=== PATIENT | male | born 1935 | race Caucasian/White ===

== ENCOUNTER → 2023-10-02 08:45 | Outpatient (REF) | payer MEDICARE, OTHER, SELFPAY ==
[2023-10-02 09:22] LABS: % Basophils 0.5 % (0-2); % Eosinophils 2.8 % (0-6); % Immature Granulocytes 0.4 % (0-0.5); % Lymphocytes 42.3 % (20.5-51.1); % Monocytes 6.2 % (1.7-9.3); % Neutrophils 47.8 % (42.2-75.2); Absolute Eosinophils 0.2 10^3/uL (0-0.7); Absolute Lymphocytes 3.6 10^3/uL (1.2-3.4); Absolute Monocytes 0.5 10^3/uL (0.1-0.6); Absolute Neutrophils 4.1 10^3/uL (1.4-6.5); Hematocrit 44.6 % (39.0-52.0); Hemoglobin 14.7 g/dL (13.0-18.0); Mean Corpuscular Volume 94.1 fL (80.0-94.0); Mean Platelet Volume 10.4 fL (7.4-10.4); Nucleated Red Blood Cells % 0 % (-); Platelet Count 331 10^3/uL (130-400); Red Blood Cell Count 4.74 10^6/uL (4.70-6.10); Red Cell Dist. Width 13.2 % (11.5-14.5); White Blood Cell Count 8.5 10^3/uL (4.8-10.8)
[2023-10-02 09:58] LABS: ALT (SGPT) 27 U/L (0-50); AST (SGOT) 35 U/L (17-59); Albumin 4.2 g/dl (3.5-5.0); Alkaline Phosphatase 61 U/L (38-126); Blood Urea Nitrogen 17 mg/dl (9-20); Calcium 9.8 mg/dl (8.4-10.2); Carbon Dioxide 32 mmol/L (22-30); Chloride 100 mmol/L (98-107); Glucose 114 mg/dl (70-99); HDL Cholesterol 44 mg/dl; LDL Cholesterol, Calculated 81 mg/dl; Potassium 4.6 mmol/L (3.5-5.1); Sodium 140 mmol/L (135-145); Total Cholesterol 153 mg/dl (50-199); Total Protein 6.5 g/dl (6.3-8.2); Triglyceride 140 mg/dl (10-149); Very Low Density Lipoprotein 28 mg/dl (0-30); eGFR > 60.00
[2023-10-02 13:20] LABS: Glycohemoglobin (HgbA1c) 5.9 % (4.0-5.6)
== END ==
LOC: REG 08:45
PROVIDERS: ATTENDING PHYSICIAN Family Medicine
DX: I48.0 Paroxysmal atrial fibrillation (principal); I25.10 Atherosclerotic heart disease of native coronary artery without angina pectoris; E78.2 Mixed hyperlipidemia; R73.01 Impaired fasting glucose
CPT/HCPCS: 36415; 80053; 80061; 83036; 85025

== ENCOUNTER → 2023-12-28 09:32 | Outpatient (REF) | payer MEDICARE, OTHER, SELFPAY ==
[2023-12-28 12:12] LABS: Blood Urea Nitrogen 22 mg/dl (9-20); Calcium 9.7 mg/dl (8.4-10.2); Carbon Dioxide 33 mmol/L (22-30); Chloride 100 mmol/L (98-107); Glucose 88 mg/dl (70-99); Potassium 4.5 mmol/L (3.5-5.1); Sodium 141 mmol/L (135-145); eGFR > 60.00
== END ==
LOC: REG 09:32
PROVIDERS: ATTENDING PHYSICIAN Family Medicine
DX: R60.0 Localized edema (principal)
CPT/HCPCS: 36415; 80048

== ENCOUNTER → 2024-01-23 10:42 | Outpatient (REF) | payer MEDICARE, OTHER, SELFPAY | LOC: RCS 10:42 | PROVIDERS: ATTENDING PHYSICIAN Internal Medicine Cardiovascular Disease; FAMILY PHYSICIAN Family Medicine | DX: R60.9 Edema, unspecified (principal) | CPT/HCPCS: 93306 ==

== ENCOUNTER → 2024-03-18 08:53 | Outpatient (REF) | payer MEDICARE, OTHER, SELFPAY ==
[2024-03-18 09:47] LABS: % Basophils 0.6 % (0-2); % Immature Granulocytes 0.4 % (0-0.5); % Lymphocytes 46.8 % (20.5-51.1); % Monocytes 5.7 % (1.7-9.3); % Neutrophils 44.5 % (42.2-75.2); Absolute Eosinophils 0.1 10^3/uL (0-0.7); Absolute Lymphocytes 3.3 10^3/uL (1.2-3.4); Absolute Monocytes 0.4 10^3/uL (0.1-0.6); Absolute Neutrophils 3.1 10^3/uL (1.4-6.5); Hematocrit 41.9 % (39.0-52.0); Mean Corp Hgb Conc. 33.4 g/dL (33.0-37.0); Mean Corpuscular Hgb 31.8 pg (27.0-31.0); Mean Corpuscular Volume 95.2 fL (80.0-94.0); Mean Platelet Volume 10.6 fL (7.4-10.4); Nucleated Red Blood Cells % 0 % (-); Platelet Count 288 10^3/uL (130-400); Red Cell Dist. Width 13.2 % (11.5-14.5); White Blood Cell Count 7.1 10^3/uL (4.8-10.8)
[2024-03-18 10:34] LABS: Glycohemoglobin (HgbA1c) 5.8 % (4.0-5.6)
[2024-03-18 10:40] LABS: ALT (SGPT) 23 U/L (0-50); AST (SGOT) 35 U/L (17-59); Albumin 4.1 g/dl (3.5-5.0); Alkaline Phosphatase 55 U/L (38-126); Blood Urea Nitrogen 22 mg/dl (9-20); Calcium 9.5 mg/dl (8.4-10.2); Carbon Dioxide 31 mmol/L (22-30); Chloride 101 mmol/L (98-107); Glucose 105 mg/dl (70-99); HDL Cholesterol 41 mg/dl; LDL Cholesterol, Calculated 88 mg/dl; Potassium 4.3 mmol/L (3.5-5.1); Sodium 142 mmol/L (135-145); Total Bilirubin 1.2 mg/dl (0.2-1.3); Total Cholesterol 156 mg/dl (50-199); Total Protein 6.2 g/dl (6.3-8.2); Triglyceride 136 mg/dl (10-149); Very Low Density Lipoprotein 27 mg/dl (0-30); eGFR > 60.00
== END ==
LOC: REG 08:53
PROVIDERS: ATTENDING PHYSICIAN Family Medicine
DX: E78.2 Mixed hyperlipidemia (principal); Z86.79 Personal history of other diseases of the circulatory system; R73.01 Impaired fasting glucose
CPT/HCPCS: 36415; 80053; 80061; 83036; 85025

== ENCOUNTER → 2024-09-16 08:20 | Outpatient (REF) | payer MEDICARE, OTHER, SELFPAY ==
[2024-09-16 09:37] LABS: % Basophils 0.5 % (0-2); % Eosinophils 1.9 % (0-6); % Immature Granulocytes 0.6 % (0-0.5); % Lymphocytes 44.4 % (20.5-51.1); % Monocytes 5.7 % (1.7-9.3); % Neutrophils 46.9 % (42.2-75.2); Absolute Eosinophils 0.1 10^3/uL (0-0.7); Absolute Lymphocytes 2.9 10^3/uL (1.2-3.4); Absolute Monocytes 0.4 10^3/uL (0.1-0.6); Hematocrit 45.3 % (39.0-52.0); Hemoglobin 14.6 g/dL (13.0-18.0); Mean Corp Hgb Conc. 32.2 g/dL (33.0-37.0); Mean Corpuscular Hgb 30.9 pg (27.0-31.0); Mean Corpuscular Volume 95.8 fL (80.0-94.0); Mean Platelet Volume 10.9 fL (7.4-10.4); Nucleated Red Blood Cells % 0 % (-); Platelet Count 349 10^3/uL (130-400); Red Blood Cell Count 4.73 10^6/uL (4.70-6.10); Red Cell Dist. Width 13.5 % (11.5-14.5); White Blood Cell Count 6.5 10^3/uL (4.8-10.8)
[2024-09-16 09:42] LABS: Urine Albumin 1+ (Neg - Trace); Urine Bilirubin Negative (Negative); Urine Character Clear (Clear); Urine Color Yellow; Urine Glucose Negative (Negative); Urine Ketone Negative (Negative); Urine Leukocyte Negative (Negative); Urine Nitrite Negative (Negative); Urine Occult Blood Negative (Negative); Urine Specific Gravity 1.015 (<1.030); Urine Urobilinogen Negative (Neg - 1+); Urine pH 6.5 (5.0-9.0)
[2024-09-16 10:09] LABS: ALT (SGPT) 30 U/L (0-50); AST (SGOT) 35 U/L (17-59); Albumin 4.3 g/dl (3.5-5.0); Alkaline Phosphatase 57 U/L (38-126); Blood Urea Nitrogen 16 mg/dl (9-20); Calcium 9.9 mg/dl (8.4-10.2); Carbon Dioxide 33 mmol/L (22-30); Chloride 100 mmol/L (98-107); Glucose 107 mg/dl (70-99); HDL Cholesterol 48 mg/dl; LDL Cholesterol, Calculated 102 mg/dl; Potassium 4.7 mmol/L (3.5-5.1); Sodium 139 mmol/L (135-145); Total Cholesterol 180 mg/dl (50-199); Total Protein 6.8 g/dl (6.3-8.2); Triglyceride 154 mg/dl (10-149); Very Low Density Lipoprotein 30 mg/dl (0-30); eGFR > 60.00
[2024-09-16 10:22] LABS: Vitamin D, 25-OH*** 48.3 ng/mL (30-80)
[2024-09-16 10:24] LABS: Glycohemoglobin (HgbA1c) 5.8 % (4.0-5.6)
[2024-09-16 10:36] LABS: PSA, Total - Screen 1.48 ng/ml (0.0-4.0); TSH 3.16 uIU/ml (0.47-4.68)
[2024-09-16 11:18] LABS: Urine Mucus Moderate; Urine Squamous Cell 0-2 /LPF (Few)
[2024-09-16 11:19] LABS: Urine Amorphous Seen; Urine Red Blood Cell 0-2 /HPF (0-2); Urine White Cell 0-2 /HPF (0-5)
== END ==
LOC: REG 08:20
PROVIDERS: ATTENDING PHYSICIAN Family Medicine
DX: R73.01 Impaired fasting glucose (principal); I10 Essential (primary) hypertension; E78.2 Mixed hyperlipidemia; Z79.899 Other long term (current) drug therapy; Z12.5 Encounter for screening for malignant neoplasm of prostate
CPT/HCPCS: 36415; 80053; 80061; 81003; 81015; 82306; 83036; 84443; 85025; G0103

== ENCOUNTER → 2025-03-25 08:47 | Outpatient (REF) | payer MEDICARE, OTHER, SELFPAY ==
[2025-03-25 09:47] LABS: Hematocrit 42.3 % (39.0-52.0); Hemoglobin 13.5 g/dL (13.0-18.0); Mean Corp Hgb Conc. 31.9 g/dL (33.0-37.0); Mean Corpuscular Volume 96.4 fL (80.0-94.0); Nucleated Red Blood Cells % 0 % (-); Platelet Count 329 10^3/uL (130-400); Red Cell Dist. Width 13.6 % (11.5-14.5)
[2025-03-25 10:32] LABS: ALT (SGPT) 26 U/L (0-50); AST (SGOT) 33 U/L (17-59); Albumin 4.4 g/dl (3.5-5.0); Alkaline Phosphatase 48 U/L (38-126); Blood Urea Nitrogen 18 mg/dl (9-20); Calcium 9.5 mg/dl (8.4-10.2); Carbon Dioxide 30 mmol/L (22-30); Chloride 103 mmol/L (98-107); Glucose 111 mg/dl (70-99); HDL Cholesterol 47 mg/dl; LDL Cholesterol, Calculated 97 mg/dl; Potassium 4.8 mmol/L (3.5-5.1); Sodium 139 mmol/L (135-145); Total Protein 6.4 g/dl (6.3-8.2); Very Low Density Lipoprotein 20 mg/dl (0-30); eGFR > 60.00
[2025-03-25 12:08] LABS: Glycohemoglobin (HgbA1c) 5.9 % (4.0-5.6)
== END ==
LOC: REG 08:47
PROVIDERS: ATTENDING PHYSICIAN Family Medicine
DX: E78.2 Mixed hyperlipidemia (principal); R73.01 Impaired fasting glucose
CPT/HCPCS: 36415; 80053; 80061; 83036; 85025